=== PATIENT | female | born 1960 | race African-American/Black ===

== ENCOUNTER 2023-05-24 00:55 | Emergency (ER) | payer OTHER ==
[2023-05-24 01:01] VITALS: RESP 18; BMI 23.0
[2023-05-24 03:20] LABS: BASO % 1.3 % (0-2.0); EOS % 1.6 % (0-4.5); HEMATOCRIT 46.4 % (32.4-45.2); HEMOGLOBIN 15.6 GM/dL (10.7-15.3); LYMPH % 42.2 % (8-40); MCH 30.2 pg (25.7-33.7); MCHC 33.6 g/dl (32.0-36.0); MEAN CELL VOLUME 89.9 fl (80-96); MEAN PLT VOLUME 7.7 fl (7.5-11.1); MONO % 7.9 % (3.8-10.2); PLATELET COUNT 390 10^3/uL (134-434); RBC 5.16 M/mm3 (3.60-5.2); RDW 15.7 % (11.6-15.6); WHITE BLOOD COUNT 6.6 K/mm3 (4.0-10.0)
[2023-05-24] MEDS ORDERED: ALBUTEROL SO4 2.5/IPRATROPIUM 0.5 INH SOL 3 ML VIAL.NEB. NEB ONE (03:22)
[2023-05-24] MEDS: ALBUTEROL SO4 2.5/IPRATROPIUM 0.5 INH SOL 3 ML VIAL.NEB. NEB ONE (03:46)
[2023-05-24 04:05] LABS: POTASSIUM 3.4 mmol/L (3.5-5.1)
[2023-05-24 04:07] LABS: ALBUMIN 3.5 g/dl (3.4-5.0); BLOOD UREA NITROGEN 5.4 mg/dL (7-18); CALCIUM 9.1 mg/dL (8.5-10.1)
[2023-05-24 04:10] LABS: CREATININE 0.5 mg/dL (0.55-1.3)
[2023-05-24 04:12] LABS: BILIRUBIN,TOTAL 0.5 mg/dL (0.2-1); TOT PROT 6.7 g/dl (6.4-8.2)
[2023-05-24 04:15] LABS: N-TERMINAL BNP 188.8 pg/ml (5-125)
[2023-05-24 05:49] VITALS: TEMP 98.3
[2023-05-24] MEDS ORDERED: methylPREDNISolone NA SUCC 125 MG/2 ML VIAL ONE (09:56)
[2023-05-24 10:00] VITALS: BP 145/85; PULSE 74
[2023-05-24] MEDS: methylPREDNISolone NA SUCC 125 MG/2 ML VIAL IVPB ONE (10:05)
== END 2023-05-24 10:29 | disposition home or self-care (01) ==
LOC: JER 00:55
PROC: 3E033GC Introduction of Other Therapeutic Substance into Peripheral Vein, Percutaneous Approach (ICD-10-PCS; principal; 2023-05-24)
PROC: 3E0F7GC Introduction of Other Therapeutic Substance into Respiratory Tract, Via Natural or Artificial Opening (ICD-10-PCS; 2023-05-24)
DX: R07.9 Chest pain, unspecified (principal); R06.02 Shortness of breath; Z20.822 Contact with and (suspected) exposure to COVID-19
CPT/HCPCS: 0241U-QW; 36415; 71046-TC-FY; 71275-TC; 80053; 83880; 84484; 85025; 85379; 93005; 93010; 99285-25; Q9967

== ENCOUNTER 2023-06-18 03:07 | Observation (INO) | payer OTHER ==
[2023-06-18] MEDS ORDERED: ACETAMINOPHEN INJECTION 100 ML IVPB ONE (03:52)
[2023-06-18] MEDS: ACETAMINOPHEN 1000 MG/100 ML BAG IVPB ONE (04:13)
[2023-06-18 04:38] LABS: BASO % 1.5 % (0-2.0); EOS % 1.2 % (0-4.5); HEMATOCRIT 39.9 % (32.4-45.2); HEMOGLOBIN 13.6 GM/dL (10.7-15.3); LYMPH % 30.8 % (8-40); MCH 30.6 pg (25.7-33.7); MCHC 34.1 g/dl (32.0-36.0); MEAN CELL VOLUME 89.8 fl (80-96); MEAN PLT VOLUME 8.4 fl (7.5-11.1); MONO % 6.9 % (3.8-10.2); NEUT % 59.6 % (42.8-82.8); PLATELET COUNT 246 10^3/uL (134-434); RBC 4.44 M/mm3 (3.60-5.2); RDW 15.5 % (11.6-15.6); WHITE BLOOD COUNT 4.6 K/mm3 (4.0-10.0)
[2023-06-18 04:56] LABS: POTASSIUM 4.4 mmol/L (3.5-5.1)
[2023-06-18 04:59] LABS: CALCIUM 8.3 mg/dL (8.5-10.1)
[2023-06-18 05:00] LABS: ALBUMIN 3.1 g/dl (3.4-5.0); BLOOD UREA NITROGEN 11.7 mg/dL (7-18)
[2023-06-18 05:02] LABS: CREATININE 0.6 mg/dL (0.55-1.3)
[2023-06-18 05:04] LABS: BILIRUBIN,TOTAL 0.4 mg/dL (0.2-1); TOT PROT 6.3 g/dl (6.4-8.2)
[2023-06-18] MEDS ORDERED: amLODIPine BESYLATE 5 MG TABLET (FP) PO SCH (10:00)
[2023-06-18] MEDS ORDERED: chlordiazePOXIDE HCL 25 MG CAPSULE PO PRN (11:10)
[2023-06-18 11:17] VITALS: BMI 20.5
[2023-06-18] MEDS: ACETAMINOPHEN 500 MG TABLET (FP) PO PRN (11:25)
[2023-06-18] MEDS: amLODIPine BESYLATE 10 MG TABLET (FP) PO SCH (11:26)
[2023-06-18] MEDS: THIAMINE 100 MG TABLET PO SCH (11:26)
[2023-06-18] MEDS: FOLIC ACID 1 MG TABLET (FP) PO SCH (11:26)
[2023-06-18] MEDS: HEPARIN NA (PORCINE) 5,000 UNITS/ML 1ML VIAL SQ SCH (11:27)
[2023-06-18] MEDS: chlordiazePOXIDE HCL 25 MG CAPSULE PO SCH (14:32)
[2023-06-19] MEDS: chlordiazePOXIDE HCL 25 MG CAPSULE PO SCH (14:56)
[2023-06-19] MEDS: KETOROLAC TROMETHAMINE 10 MG TABLET PO PRN (17:22)
[2023-06-19] MEDS: ACETAMINOPHEN 500 MG TABLET (FP) PO PRN (21:47)
[2023-06-20 07:54] LABS: HEMATOCRIT 38.5 % (32.4-45.2); HEMOGLOBIN 13.1 GM/dL (10.7-15.3); MCH 30.3 pg (25.7-33.7); MCHC 33.9 g/dl (32.0-36.0); MEAN CELL VOLUME 89.3 fl (80-96); MEAN PLT VOLUME 8.4 fl (7.5-11.1); PLATELET COUNT 218 10^3/uL (134-434); RBC 4.31 M/mm3 (3.60-5.2); RDW 15.1 % (11.6-15.6); WHITE BLOOD COUNT 4.4 K/mm3 (4.0-10.0)
[2023-06-20 08:10] LABS: POTASSIUM 3.6 mmol/L (3.5-5.1)
[2023-06-20 08:14] LABS: CALCIUM 9.1 mg/dL (8.5-10.1)
[2023-06-20 08:15] LABS: BLOOD UREA NITROGEN 11.8 mg/dL (7-18); MAGNESIUM 1.6 mg/dL (1.8-2.4)
[2023-06-20 08:18] LABS: CREATININE 0.7 mg/dL (0.55-1.3); PHOSPHOROUS 3.9 mg/dL (2.5-4.9)
[2023-06-20] MEDS ORDERED: MAGNESIUM 2GM/50ML STERILE WATER IVPB IVPB ONE (09:14)
[2023-06-20] MEDS: MAGNESIUM 2GM/50ML STERILE WATER IVPB IVPB ONE (10:11)
[2023-06-20 14:47] VITALS: BP 110/79; PULSE 80; RESP 18; TEMP 98.8
== END 2023-06-20 17:14 | disposition other institution (70) ==
LOC: JER 03:07 → JERBED 08:08 → J4W 10:23
PROVIDERS: ADMIT Internal Medicine; ATTEND Internal Medicine
PROC: 3E033NZ Introduction of Analgesics, Hypnotics, Sedatives into Peripheral Vein, Percutaneous Approach (ICD-10-PCS; principal; 2023-06-18)
PROC: 3E023GC Introduction of Other Therapeutic Substance into Muscle, Percutaneous Approach (ICD-10-PCS; 2023-06-18)
PROC: 3E033GC Introduction of Other Therapeutic Substance into Peripheral Vein, Percutaneous Approach (ICD-10-PCS; 2023-06-18)
DX: R22.0 Localized swelling, mass and lump, head (principal); W18.39XA Other fall on same level, initial encounter; Y93.89 Activity, other specified; F10.90 Alcohol use, unspecified, uncomplicated; Y92.481 Parking lot as the place of occurrence of the external cause; I10 Essential (primary) hypertension; Z59.00 Homelessness unspecified; J44.9 Chronic obstructive pulmonary disease, unspecified; F10.99 Alcohol use, unspecified with unspecified alcohol-induced disorder; R55 Syncope and collapse
CPT/HCPCS: 0241U-QW; 36415; 70450-TC; 70486-TC; 71045-TC-FY; 72125-TC; 80048; 80053; 83735; 84100; 84484; 85025; 85027; 93005; 93010; 96372; 96374; 96375; 97116-GP; 99285-25; G0378; J0131; J1644

== ENCOUNTER 2023-06-20 17:51 | Inpatient (IN) | payer OTHER ==
[2023-06-20 18:45] VITALS: BMI 22.1
[2023-06-20] MEDS ORDERED: BENZOCAINE/MENTHOL (CHLORASEPTIC ) LOZENGE MM PRN (19:22)
[2023-06-20] MEDS ORDERED: MAG HYDROX/AL HYDROX/SIMETH 30 ML UNIT-DOSE CUP PO PRN (19:22)
[2023-06-20] MEDS ORDERED: guaiFENesin 600 MG TABLET.ER (FP) PO PRN (19:22)
[2023-06-20] MEDS ORDERED: LOPERAMIDE HCL 2 MG CAPSULE PO PRN (19:22)
[2023-06-20] MEDS ORDERED: BENZONATATE 200 MG CAPSULE PO PRN (19:22)
[2023-06-20] MEDS ORDERED: IBUPROFEN 400 MG TABLET (FP) PO PRN (19:22)
[2023-06-20] MEDS ORDERED: POLYETHYLENE GLYCOL (HEALTHYLAX) 3350 17 GM PACKET PO PRN (19:22)
[2023-06-20] MEDS ORDERED: NALOXONE HCL (KLOXXADO) 8 MG SPRAY NS PRN (19:22)
[2023-06-20] MEDS ORDERED: NALOXONE HCL 0.4 MG/ML VIAL IM PRN (19:22)
[2023-06-20] MEDS ORDERED: MAGNESIUM HYDROX 2400MG/30ML ORAL SUSPENSION 30 ML CUP PO PRN (19:22)
[2023-06-20] MEDS ORDERED: IBUPROFEN 600 MG TABLET (FP) PO ONE (20:05)
[2023-06-20] MEDS: IBUPROFEN 600 MG TABLET (FP) PO PRN (20:07)
[2023-06-20] MEDS: MELATONIN 5 MG TABLETS PO SCH (22:12)
[2023-06-20] MEDS: THIAMINE 100 MG TABLET PO SCH (22:12)
[2023-06-20] MEDS: hydrOXYzine PAMOATE 25 MG CAPSULE (FP) PO PRN (22:13)
[2023-06-21] MEDS: PRENATAL VITAMINS W/ FOLIC ACID TABLET (FP) PO SCH (10:53)
[2023-06-22] MEDS: BUDESONIDE/FORMETEROL FUMARATE 160/4.5 mcg INHALER IH SCH (22:31)
[2023-06-22] MEDS: METHYL SALICYLATE/MENTHOL OINT 30 GM TUBE TP SCH (23:04)
[2023-06-23] MEDS: amLODIPine BESYLATE 10 MG TABLET (FP) PO SCH (10:32)
[2023-06-23 11:43] LABS: EPI CELLS >36 /uL (0-25.1); HYALINE CASTS 0 /uL (0-3.1); URINE APPEARANCE CLEAR; URINE BACTERIA 648 /uL (0-1359); URINE BILIRUBIN NEGATIVE (NEGATIVE); URINE COLOR YELLOW; URINE GLUCOSE (UA) NEGATIVE (NEGATIVE); URINE KETONE NEGATIVE (NEGATIVE); URINE LEUK ESTERASE 1+ (NEGATIVE); URINE NITRITE NEGATIVE (NEGATIVE); URINE PROTEIN NEGATIVE (NEGATIVE); URINE RBC 45 /uL (0-23.9); URINE UROBILINOGEN 0.2 mg/dL (0.2-1.0); URINE WBC 64 /uL (0-25.8)
[2023-06-23 12:24] LABS: URINE CRYSTALS PRESENT /hpf
[2023-06-23] MEDS: ALBUTEROL SO4 HFA INHALER IH PRN (21:47)
[2023-06-24] MEDS ORDERED: MEGESTROL ACETATE 20 MG TABLET PO SCH (12:00)
[2023-06-24] MEDS: CYPROHEPTADINE HCL 4 MG TABLET PO SCH (17:03)
[2023-06-27] MEDS ORDERED: TUBERCULIN PPD 5 TU/0.1ML VIAL ID ONE (11:53)
[2023-06-28] MEDS: LIDOCAINE 4% PATCH TP SCH (15:53)
[2023-06-28] MEDS: LIDOCAINE PATCH REMOVAL MC SCH (21:47)
[2023-06-29] MEDS: ACETAMINOPHEN 325 MG TABLET (FP) PO PRN (15:06)
[2023-07-15] MEDS: AMMONIUM LACTATE 12% LOTION 225 GM BOTTLE TP PRN (11:56)
[2023-07-19 07:49] VITALS: RESP 18; TEMP 97.5
[2023-07-19 08:49] VITALS: BP 116/69; PULSE 96
== END 2023-07-19 11:00 | disposition home or self-care (01) | DRG 895 ==
LOC: YASAS 17:51 → Y3NR 19:48 → Y5N 06-23 13:52
PROVIDERS: ADMIT Allergy & Immunology; ATTEND Psychiatry & Neurology Pain Medicine
PROC: HZ42ZZZ Group Counseling for Substance Abuse Treatment, Cognitive-Behavioral (ICD-10-PCS; principal; 2023-06-20)
DX: F10.20 Alcohol dependence, uncomplicated (principal); Z59.00 Homelessness unspecified; F17.210 Nicotine dependence, cigarettes, uncomplicated; F41.9 Anxiety disorder, unspecified; F32.A Depression, unspecified; E78.5 Hyperlipidemia, unspecified; I10 Essential (primary) hypertension; J44.9 Chronic obstructive pulmonary disease, unspecified; Z96.653 Presence of artificial knee joint, bilateral; Z91.81 History of falling; Z86.19 Personal history of other infectious and parasitic diseases
CPT/HCPCS: 36415; 80305; 80307; 81003; 87811